=== PATIENT | male | born 1960 | race African-American/Black ===

== ENCOUNTER → 2018-04-07 | Outpatient (CLI) | payer OTHER | END | disposition home or self-care (01) | LOC: KCIC MRI 08:33 | DX: M43.16 Spondylolisthesis, lumbar region (principal); M51.37 Other intervertebral disc degeneration, lumbosacral region; E88.2 Lipomatosis, not elsewhere classified; I11.0 Hypertensive heart disease with heart failure; I50.9 Heart failure, unspecified; E78.5 Hyperlipidemia, unspecified | CPT/HCPCS: 72148 ==

== ENCOUNTER → 2018-05-29 | Outpatient (CLI) | payer OTHER ==
[2015-03-10 14:45] VITALS: BP 122/85
[~2018-05-29] MED LIST: ASPI325T8 PO; ATOR40TA59 PO; DIGO125T PO; EXEN2VIA SQ; GLIM4TAB2 PO; IOHEXOL 240 MG/ML 50ML VIAL. PO ONE; IOHEXOL 300 MG/ML 100ML VIAL. IV ONE; LISI10TA2 PO; METF10007 PO; SOTA80TA48 PO; TRAM50TA PO; WARF-78 PO
--- NOTE | 2018-05-29 18:52 | RAD ---
[employer] Compliance statement: One or more of the following individualized dose reduction techniques were utilized for this examination: 1. Automated exposure control. 2. Adjustment of the mA and/or kV according to patient size. 3. Use of iterative reconstruction technique. Indication:Nausea and vomiting x 1 week TECHNIQUE: CT abdomen and pelvis with IV contrast with multiplanar reformats. COMPARISON: None FINDINGS: Heart is normal in size. No pericardial or pleural effusion. Couple of nodules are seen in the right lung base, the largest measuring 6 mm in the right lower lobe. Liver, spleen, pancreas, adrenals and kidneys are within normal limits. Gallstones noted. No pericholecystic fluid. No enlarged retroperitoneal or pelvic adenopathy. No free pelvic fluid or ascites. Fat-containing right inguinal hernia. No bowel obstruction. Normal appendix. Omental fat-containing umbilical hernia with neck measuring 2.5 cm and the hernia sac measuring 5.8 x 5.1 cm. Urinary bladder within normal limits. The prostate and seminal vesicles show no large mass. No suspicious bony lesion. IMPRESSION: 1. No acute findings. 2. Cholelithiasis without imaging evidence of acute cholecystitis. 3. Omental fat-containing umbilical hernia. 4. Few pulmonary nodules in the right lower lung bases, nonspecific. Correlate with outside imaging if available to see if these were present before. If no prior imaging exists, Nonemergent CT chest without IV contrast is recommended for evaluation of complete chest. Electronically signed by: Dario Page DO (05/29/2018 6:49 PM) [facility]
== END | disposition home or self-care (01) ==
LOC: CT 17:27
PROVIDERS: ATTEND Nurse Practitioner Family
DX: K80.80 Other cholelithiasis without obstruction (principal); K42.9 Umbilical hernia without obstruction or gangrene; K40.90 Unilateral inguinal hernia, without obstruction or gangrene, not specified as recurrent; I11.0 Hypertensive heart disease with heart failure; I50.9 Heart failure, unspecified; E11.9 Type 2 diabetes mellitus without complications; E78.5 Hyperlipidemia, unspecified; Z82.49 Family history of ischemic heart disease and other diseases of the circulatory system
CPT/HCPCS: 74177; Q9966; Q9967